=== PATIENT | male | born 1950 | race Caucasian/White ===

== ENCOUNTER 2016-05-08 06:52 | Day surgery (SDC) | payer MEDICARE, OTHER ==
[~2016-05-08 06:52] MED LIST: IV START KIT ONE; LACTATED RINGERS 1,000 ML ONE
[2016-05-08] MEDS ORDERED: LIDOCAINE 2% (PRES FREE) 5 ML VIAL ONE (07:06)
[2016-05-08] MEDS ORDERED: PROPOFOL 80 ML IV ONE (07:06)
[2016-05-08] MEDS ORDERED: LACTATED RINGERS 1,000 ML IV SCH (09:00)
--- NOTE | 2016-05-10 09:33 | SURGPATH ---
[facility] [address] [place] [id number] Patient Name: ISA JEFFREY MR#: [id number] : 1950 Gender: M Specimen #: [id number] Collected: 05/08/2016 Received: 05/09/2016 Reported: 05/10/2016 Submitting Phys: RALPH LAGUNA Copy To Phys: [facility] STEVE CRUZ Clinical History / Pre-Operative Diagnosis: SCREENING Specimen Source / Surgical Procedure Performed: #1-DESCENDING COLON POLYP AT 45 CM; #2-RECTUM POLYP AT 12 CM Interpretation: 1. COLON, DESCENDING 45 CM, BIOPSY: - TUBULAR ADENOMA. - NO EVIDENCE OF MALIGNANCY. 2. RECTUM, 12 CM, BIOPSY: - TWO FRAGMENTS OF TUBULAR ADENOMAS. - NO EVIDENCE OF MALIGNANCY. Electronically Signed Out Yazan Mooney M.D., Ph.D. Gross Description: #1 The specimen is received in a formalin filled container labeled with the patient's name and "descending colon polyp". A polypoid hutchins biopsy is 0.5 x 0.3 x 0.3 cm. Totally embedded in cassette #1. #2 The specimen is received in a formalin filled container labeled with the patient's name and "rectum polyp". A single rosen biopsy is 0.5 cm. Totally embedded in cassette #2. Cruzito Tinoco, P.A. Microscopic Description: 1. Examination of multiple levels from the descending colon biopsy at 45 cm shows a single fragment of colonic mucosa with adenomatous changes within glands and tubules. There is no evidence of malignancy. 2. Examination of multiple levels from the rectum biopsy at 12 cm shows two fragments of colonic mucosa with adenomatous changes within glands and tubules. There is no evidence of malignancy. 1: [id number] 2: 22258 D12.4 D12.8
== END 2016-05-08 09:22 | disposition home or self-care (01) ==
LOC: SDC 06:52
PROVIDERS: ATTEND Surgery
PROC: 0DBP8ZX Excision of Rectum, Via Natural or Artificial Opening Endoscopic, Diagnostic (ICD-10-PCS; principal; 2016-05-08)
PROC: 0DBM8ZX Excision of Descending Colon, Via Natural or Artificial Opening Endoscopic, Diagnostic (ICD-10-PCS; 2016-05-08)
DX: Z12.11 Encounter for screening for malignant neoplasm of colon (principal); D12.4 Benign neoplasm of descending colon; D12.8 Benign neoplasm of rectum; K55.20 Angiodysplasia of colon without hemorrhage; K57.30 Diverticulosis of large intestine without perforation or abscess without bleeding; Z80.0 Family history of malignant neoplasm of digestive organs; N40.0 Benign prostatic hyperplasia without lower urinary tract symptoms; I10 Essential (primary) hypertension; E78.2 Mixed hyperlipidemia; M19.90 Unspecified osteoarthritis, unspecified site; R73.09 Other abnormal glucose
CPT/HCPCS: 45385; J7120